=== PATIENT | male | born 1985 | race Native Hawaiian/Other Pacific Islander ===

== ENCOUNTER 2016-11-06 17:08 | Emergency (ER) | payer SELFPAY ==
[2016-11-06 17:51] VITALS: BP 152/104
== END 2016-11-06 23:30 | disposition left against medical advice (07) ==
LOC: ED 17:08
DX: M54.2 Cervicalgia (principal); M25.512 Pain in left shoulder; Z53.21 Procedure and treatment not carried out due to patient leaving prior to being seen by health care provider